=== PATIENT | male | born 1995 | race Caucasian/White ===

== ENCOUNTER 2023-05-10 23:29 | Emergency (ER) | payer OTHER ==
[~2023-05-10] VITALS: Ht 177.8 cm; Wt 72.6 kg
[2023-05-10 23:30] VITALS: BP_SYST 130; PULSE 83; RESP 20; TEMP 98.5; O2SAT 98
[2023-05-11] MEDS ORDERED: LIDOCAINE/EPI 1% 1:100000 20 ML VIAL ONE (00:23)
[2023-05-11] MEDS: BACITRACIN/POLYMYXIN B SULFATE 30 GM TOPICAL OINT. TP ONE (01:06)
[2023-05-11] MEDS: LIDOCAINE/EPI 1% 1:100000 20 ML VIAL INJ ONE (01:21)
[2023-05-11] MEDS: BACITRACIN 1 GM OINT TP ONE (01:26)
[2023-05-11] MEDS: NACL 0.9% 1,000 ML IV ONE (03:12)
[2023-05-11] MEDS: KETOROLAC TROMETHAMINE 30 MG VIAL IVP ONE ×2 (03:13→07:40)
[2023-05-11 09:10] LABS: BARBITURATE, URINE NEGATIVE (NEG <=200); BENZODIAZEPINE, URINE NEGATIVE (NEG <=150); METHAMPHETAMINES SCREEN,URINE NEGATIVE (NEG <=500); URINE AMPHETAMINE NEGATIVE (NEG <=500); URINE METHADONE NEGATIVE (NEG <=200)
[2023-05-11 09:11] LABS: CANNABINOID, URINE POSITIVE (NEG <=50); COCAINE, URINE NEGATIVE (NEG <=150); OPIATE, URINE NEGATIVE (NEG <=100); PHENCYCLIDINE SCREEN,URINE NEGATIVE (NEG <=25); UR TRICYCLIC ANTIDEPRESSANTS NEGATIVE (NEG <=300); URINE OXYCODONE SCREEN NEGATIVE (NEG <=100)
[2023-05-11 14:34] VITALS: BP_SYST 128; PULSE 68; RESP 15; TEMP 97.2; O2SAT 99
== END 2023-05-11 14:33 | disposition short-term general hospital (02) ==
LOC: SED 23:29
DX: S02.609A Fracture of mandible, unspecified, initial encounter for closed fracture (principal); S01.81XA Laceration without foreign body of other part of head, initial encounter; Y04.0XXA Assault by unarmed brawl or fight, initial encounter; Y93.89 Activity, other specified; Y92.524 Gas station as the place of occurrence of the external cause; Y99.8 Other external cause status; F17.200 Nicotine dependence, unspecified, uncomplicated; F10.90 Alcohol use, unspecified, uncomplicated; F12.90 Cannabis use, unspecified, uncomplicated
CPT/HCPCS: 99285; 80307; 82948; 12011; 70450; 96374; 96361; 70486; 96376; J1885; J7030